=== PATIENT | female | born 1955 | race Caucasian/White ===

== ENCOUNTER 2017-08-14 08:10 | Outpatient (CLI) | payer BC ==
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
--- NOTE | 2017-08-14 13:37 | MRI ---
MRI LUMBAR SPINE WITHOUT CONTRAST: Date: 08/14/17 INDICATION: Low back pain extending down to the legs. COMPARISON: Lumbar spine radiographs dated 08/14/17. FINDINGS: There is disc degenerative disease most prominent at L4-5 and L5-S1. There is slight anterior transl ation of l4 on L5. Conus is seen to terminate at approximately L1. The visualized retroperitoneum and paravertebral soft tissues appear within normal limits. No acute fracture is evident. At L5-S1, there is a broad based bulge with facet joint degenerative change and loss of disc space h eight inducing mild bilateral neural foraminal narrowing. At L4-5, there is moderate to severe bilateral facet joint degenerative change and a broad based dis c bulge and Grade I anterolisthesis inducing mild bilateral neural foraminal narrowing, left greater than right. At L3-4, there is mild facet joint degenerative change and broad based disc bulge. There is no appre ciable central canal or neural foraminal narrowing. At L2-3, there is no appreciable central canal or neural foraminal narrowing. At L1-2, there is no appreciable central canal or neural foraminal narrowing. IMPRESSION: 1. Mild spondylosis of lumbar spine most pronounced at L4-5 where there is mild bilateral neural fo raminal narrowing. 2. Grade I anterolisthesis of L4 on L5 is related to prominent facet degenerative change at this le mayelin. POS: [facility]
== END 2017-08-14 08:11 | disposition home or self-care (01) ==
LOC: TBSIIMAG 08:10
PROVIDERS: ATTEND Surgery
DX: M47.22 Other spondylosis with radiculopathy, cervical region (principal); M47.26 Other spondylosis with radiculopathy, lumbar region; M43.12 Spondylolisthesis, cervical region; M43.16 Spondylolisthesis, lumbar region
CPT/HCPCS: 72050; 72120; 72141; 72148

== ENCOUNTER 2018-03-05 10:52 | Outpatient (CLI) | payer BC ==
[2018-03-05 11:34] LABS: Anion Gap 11 mmol/L (10-20); BUN (Urea Nitrogen) 15 mg/dL (9.8-20.1); Calc. Creatinine Clearance 0 mL/min (70-130); Calcium 9.7 mg/dL (7.8-10.44); Carbon Dioxide 26 mmol/L (23-31); Chloride 109 mmol/L (98-107); Estimated GFR-MDRD 83; Glucose 68 mg/dL (80-115); Potassium 3.8 mmol/L (3.5-5.1); Sodium 142 mmol/L (136-145)
[2018-03-05 11:45] LABS: Bilirubin Negative (Negative); Blood, Urine Negative (Negative); Clarity Cloudy (Clear); Glucose, Urine (Dipstick) Negative (Negative); Leukocyte Negative (Negative); Nitrite Positive (Negative); Protein, Urine (Dipstick) Negative (Neg-Trace); Urobilinogen 0.2 mg/dL (0.2-1.0)
[2018-03-05 11:50] LABS: Bacteria/HPF 3+ HPF (None Seen); RBC/HPF 0-3 HPF (0-3); Squamous Epithelial 0-3 HPF (0-3); WBC/HPF 0-3 HPF (0-3)
--- NOTE | 2018-03-05 12:30 | RAD ---
ABDOMEN 1 VIEW: HISTORY: Renal calculi. COMPARISON: 04/23/16. FINDINGS: Nonspecific bowel gas pattern. Surgical clips are again demonstrated. No suspicious densities proje cting over the expected region of either ureter or along the expected location of the left and right renal silhouette. Evaluation is limited by bowel gas and fecal material. IMPRESSION: Unremarkable 1 view abdomen. No radiographic evidence of nephrolithiasis. POS: [facility]
--- NOTE | 2018-03-05 12:55 | ULT ---
RENAL ULTRASOUND: Date: 03-05-18 Provided Clinical History: History of kidney stones. FINDINGS: Right kidney measures about 11.1 x 4.3 x 4.8 cm and demonstrates no evidence for hydronephrosis, sono graphically apparent calculus or mass. Left kidney measures about 11.2 x 5.5 x 4.4 cm and demonstrates no evidence for hydronephrosis, sonog raphically apparent calculus or mass. The urinary bladder appears sonographically unremarkable with bilateral ureteral jets seen. IMPRESSION: No evidence for hydronephrosis. POS: [facility]
== END 2018-03-05 10:53 | disposition home or self-care (01) ==
LOC: SCSULT 10:52
PROVIDERS: ATTEND Urology
DX: R30.0 Dysuria (principal); Z87.442 Personal history of urinary calculi
CPT/HCPCS: 36415; 74018; 76770; 80048; 81001; 87077; 87086; 87186

== ENCOUNTER 2018-04-21 15:49 | Outpatient (CLI) | payer BC | END 2018-04-21 15:50 | disposition home or self-care (01) | LOC: BICMAMMO 15:49 | PROVIDERS: ATTEND Family Medicine | DX: Z12.31 Encounter for screening mammogram for malignant neoplasm of breast (principal); Z80.3 Family history of malignant neoplasm of breast | CPT/HCPCS: 77063; 77067 ==

== ENCOUNTER 2018-05-28 14:48 | Outpatient (CLI) | payer BC ==
[2018-05-28 15:14] LABS: Hemoglobin 12.3 g/dL (12.0-16.0); Mean Corpuscular HGB CONC 34.8 g/dL (32.0-36.0); Mean Corpuscular Hemoglobin 34.9 pg (27.0-31.0); Mean Platelet Volume 6.5 fL (7.4-10.4); Platelet Count 229 thou/uL (130-400); RBC Distribution Width 13.9 % (11.5-14.5); Red Blood Cell (RBC) Count 3.54 mill/uL (4.20-5.40); White Blood Cell (WBC) Count 5.9 thou/uL (4.8-10.8)
[2018-05-28 15:25] LABS: Prothrombin Time 13.3 SEC (12.0-14.7)
[2018-05-28 15:26] LABS: PTT 28.8 SEC (22.9-36.1)
[2018-05-28 15:34] LABS: Anion Gap 13 mmol/L (10-20); BUN (Urea Nitrogen) 18 mg/dL (9.8-20.1); Calc. Creatinine Clearance 0 mL/min (70-130); Calcium 9.9 mg/dL (7.8-10.44); Carbon Dioxide 23 mmol/L (23-31); Chloride 108 mmol/L (98-107); Estimated GFR-MDRD 72; Glucose 98 mg/dL (80-115); Potassium 3.7 mmol/L (3.5-5.1); Sodium 140 mmol/L (136-145)
== END 2018-05-28 14:49 | disposition home or self-care (01) ==
LOC: LABBT 14:48
PROVIDERS: ATTEND Surgery
DX: Z01.818 Encounter for other preprocedural examination (principal); M48.02 Spinal stenosis, cervical region; M54.12 Radiculopathy, cervical region
CPT/HCPCS: 80048; 85027; 85610; 85730; 93005; 93010

== ENCOUNTER 2018-07-12 16:44 | Outpatient (CLI) | payer BC ==
[2018-07-12 17:42] LABS: #Basophils 0.1 thou/uL (0.0-0.2); #Eosinphils 0.1 thou/uL (0.0-0.7); #Lymphocytes 2.1 thou/uL (1.20-3.40); #Monocytes 0.4 thou/uL (0.11-0.59); #Neutrophils 3.1 thou/uL (1.40-6.50); %Basophils 1.5 % (0.0-1.0); %Eosinophils 1.5 % (0.0-10.0); %Lymphocytes 36.5 % (21.0-51.0); %Monocytes 7.3 % (0.0-10.0); %Neutrophils 53.2 % (42.0-75.0); Hemoglobin 12.9 g/dL (12.0-16.0); Mean Corpuscular HGB CONC 32.8 g/dL (32.0-36.0); Mean Corpuscular Hemoglobin 32.7 pg (27.0-31.0); Mean Corpuscular Volume 99.7 fL (78.0-98.0); Platelet Count 220 thou/uL (130-400); RBC Distribution Width 12.8 % (11.5-14.5); Red Blood Cell (RBC) Count 3.94 mill/uL (4.20-5.40); White Blood Cell (WBC) Count 5.8 thou/uL (4.8-10.8)
[2018-07-12 17:49] LABS: PTT 30.1 SEC (22.9-36.1); Prothrombin Time 13.4 SEC (12.0-14.7)
[2018-07-12 18:01] LABS: ALT (SGPT) 11 U/L (8-55); AST (SGOT) 14 U/L (5-34); Albumin 4.6 g/dL (3.4-4.8); Alkaline Phosphatase 83 U/L (40-150); Anion Gap 11 mmol/L (10-20); BUN (Urea Nitrogen) 16 mg/dL (9.8-20.1); Bilirubin, Total 0.4 mg/dL (0.2-1.2); Calc. Creatinine Clearance 0 mL/min (70-130); Calcium 9.6 mg/dL (7.8-10.44); Carbon Dioxide 25 mmol/L (23-31); Chloride 106 mmol/L (98-107); Estimated GFR-MDRD 74; Glucose 94 mg/dL (80-115); Potassium 4.1 mmol/L (3.5-5.1); Protein, Total 6.6 g/dL (6.0-8.3); Sodium 138 mmol/L (136-145)
== END 2018-07-12 16:45 | disposition home or self-care (01) ==
LOC: LABBT 16:44
PROVIDERS: ATTEND Internal Medicine Cardiovascular Disease
DX: Z01.818 Encounter for other preprocedural examination (principal)
CPT/HCPCS: 80053; 85025; 85610; 85730; 93005; 93010

== ENCOUNTER 2018-07-15 05:40 | Day surgery (SDC) | payer BC ==
[2018-07-12 16:53] VITALS: BMI 33.6
[2018-07-15] MEDS ORDERED: Heparin 0 ML ONE (06:32)
[2018-07-15] MEDS ORDERED: Lidocaine 1% (PF) 30 ML VIAL ONE ×2 (06:32→06:44)
--- NOTE | 2018-07-15 12:13 | DIS ---
DATE OF PROCEDURE: 07/15/2018 INDICATION FOR PROCEDURE: A 62-year-old female with palpitations who underwent stress testing and wa s found to have an abnormal stress test and was advised to undergo cardiac catheterization. Her othe r diagnoses include diabetes, history of chronic obstructive pulmonary disease in the form of asthma. DISCHARGE DIAGNOSES: Normal coronary arteries, palpitations which most likely is supraventricular ta chycardia. FOLLOW UP: Her follow up will be with me in the next month in the office. She will continue routine followups with primary care physician, Dr. Bae. PROCEDURES IN THE HOSPITAL: Cardiac catheterization, left ventriculogram, and coronary arteriography . DISCHARGE MEDICATIONS: Include potassium chloride 10 mEq daily, Trokendi XR 50 mg capsules once a da y, sertraline 50 mg daily, Myrbetriq 50 mg 1 tablet q.a.m., Flovent inhaler, Premarin vaginal cream, methotrexate, folic acid, Integra, omeprazole, Flector 1.3% transdermal patch twice a day, prednisone 20 mg a day, tramadol 50 mg as needed, tizanidine 4 mg capsules b.i.d., Amitiza 24 mcg capsules 1 b. i.d. with food and water. Also will start her on a low dose of beta elijah or either a low dose of verapamil, perhaps or diltiazem to decrease the risk of the palpitations or SVT, most likely will sta rt her on a low dose of diltiazem. If she continues to have palpitations she may need to undergo an event monitor. HOSPITAL COURSE: This is a very pleasant 62-year-old female who was seen in the office complaining o f palpitations. She has been seen many years ago for palpitations, had a cardiac catheterization and was found to have normal coronary arteries. She has a history of rheumatoid arthritis. She denied any specific chest pain, but with the palpitations and other complaints she was advised to undergo st ress testing. She was found to have abnormalities on stress test and was advised to undergo a cardia c catheterization. She was found at the cardiac catheterization to have normal coronary arteries and normal left ventricular systolic function. If she remains stable, she will be discharged home later today. Please note that if the palpitations or SVT, then they are most likely not harmful since the y only last for a few minutes. If these are PVCs or even nonsustained ventricular tachycardia if the y are short-lived, due to the fact that she has a normal left ventricular systolic function, normal c oronaries, there is a very low likelihood that she will have any acute cardiac events. Actually the risk would be less than 1% that she would have any acute cardiac events based on the PVCs or palpitat ions. At this time, she is stable. If she remains stable, there is no bleeding from the groin site then she will be discharged home and I will see her back in the office. She should continue her rout ine followups with Dr. Bae.
== END 2018-07-15 11:30 | disposition home or self-care (01) ==
LOC: CCL 05:40
PROVIDERS: ATTEND Internal Medicine Cardiovascular Disease
PROC: 4A023N7 Measurement of Cardiac Sampling and Pressure, Left Heart, Percutaneous Approach (ICD-10-PCS; principal; 2018-07-15)
PROC: B2111ZZ Fluoroscopy of Multiple Coronary Arteries using Low Osmolar Contrast (ICD-10-PCS; principal; 2018-07-15)
DX: R00.2 Palpitations (principal); R94.39 Abnormal result of other cardiovascular function study; E11.9 Type 2 diabetes mellitus without complications; J44.9 Chronic obstructive pulmonary disease, unspecified; M06.9 Rheumatoid arthritis, unspecified; Z79.899 Other long term (current) drug therapy; Z88.0 Allergy status to penicillin; Z88.2 Allergy status to sulfonamides; Z91.048 Other nonmedicinal substance allergy status
CPT/HCPCS: 93458; C1769; J1644; J2001

== ENCOUNTER 2018-07-23 06:06 | Observation (INO) | payer BC ==
[2018-07-22 12:14] VITALS: BMI 33.6
[2018-07-23] MEDS ORDERED: CEFAZOLIN/Water 2 GM/20 ML SYRINGE ONE (06:32)
[2018-07-23] MEDS ORDERED: Levofloxacin 500 mg/D5W 100 ml Premix Bag ONE (06:32)
[2018-07-23] MEDS ORDERED: Clindamycin/D5W 900 mg/50 ml Premix Bag ONE (06:33)
[2018-07-23] MEDS ORDERED: Sodium Chloride 0.9% 10 ML ONE (06:56)
[2018-07-23] MEDS ORDERED: Thrombin 5000 UNITS/5 ML VIAL ONE (06:57)
[2018-07-23] MEDS ORDERED: Fentanyl 250 MCG/5 ML VIAL ONE (07:10)
[2018-07-23] MEDS ORDERED: Fentanyl 100 MCG/2 ML VIAL ONE (10:08)
--- NOTE | 2018-07-23 11:04 | OP ---
OR: 12 WOUND TYPE: Type 1 wound. SURGEON: Raymond Khan M.D. MIXING AND DISPENSING SUPERVISOR: Danny Saldana PA-C. PREPROCEDURE DIAGNOSES: Cervical stenosis with neck pain and left C6 radiculopathy. POSTPROCEDURE DIAGNOSES: Cervical stenosis with neck pain and left C6 radiculopathy. PROCEDURES PERFORMED: 1. Anterior C5-C6 diskectomy for decompression of the spinal cord and nerve roots. 2. Preparation of endplates with placement of interbody spacer packed with graft C5-C6 for arthrodes is. 3. Use of operative microscope for micro dissection. 4. Anterior cervical plate and screw fixation, C5-C6. DESCRIPTION OF PROCEDURE: After informed consent was obtained from the patient, the patient was brou ght to OR 12. Proper patient pause and identification was carried out. We then positioned her cervi daniela spine in neutral position. I made a right anterior oblique aysha at C5-C6 to allow for approach t o C5-C6 segment. This region was sterilely cleansed, prepared, and draped. Proper patient pause and identification was carried out. The wound was then opened with a combination of sharp, monopolar an d blunt dissection. I proceeded lateral to the trachea and esophagus and medial to the right carotid sheath. I identified the prevertebral layer of deep cervical fascia and the C5-C6 segment was local ized. Distraction then occurred and the microscope was brought in for microdissection. A diskectomy was performed at C5-C6 with excellent decompression of the common dural tube and C6 nerve roots. We then turned our attention to preparation of the endplates. An interbody spacer of appropriate dimen fer packed with graft and was placed at C5-C6 for arthrodesis. Copious irrigation as did maximizing hemostasis occurred throughout. The microscope was then removed and anterior cervical plate and scr ew fixation at C5-C6 then occurred with final tightening. We again maximized hemostasis with copious irrigation as well and the wound was then closed in anatomic layers over a drain. The patient then emerged from anesthesia.
[2018-07-23] MEDS ORDERED: Milk Of Magnesia 30 ML UDCUP PO PRN (12:45)
[2018-07-23] MEDS ORDERED: Mag-Al 1200 mg/1200 mg/30 ML UDCUP PO PRN (12:45)
[2018-07-23] MEDS ORDERED: traMADol HCl 50 MG TAB PO PRN ×2 (12:45)
[2018-07-23] MEDS ORDERED: Acetaminophen 325 MG TAB PO PRN (12:45)
[2018-07-23] MEDS ORDERED: Promethazine HCl 12.5 MG SUPP PR PRN (12:45)
[2018-07-23] MEDS ORDERED: Fleet Enema 133 ML BOT PR PRN (12:45)
[2018-07-23] MEDS ORDERED: Acetaminophen 650 MG Suppository PR PRN (12:45)
[2018-07-23] MEDS ORDERED: Bisacodyl 10 MG SUPP PR PRN (12:45)
[2018-07-23] MEDS ORDERED: Promethazine HCl 25 MG/ML VIAL IM PRN (12:45)
[2018-07-23] MEDS ORDERED: Acetaminophen/Codeine 30-300mg Tablet PO PRN ×2 (12:45)
[2018-07-23] MEDS ORDERED: Promethazine 25 MG TAB PO PRN (12:45)
[2018-07-23] MEDS ORDERED: Fluticasone Propionate HFA 110 MCG AER INH PRN ×2 (13:03→16:00)
[2018-07-23] MEDS: tiZANidine HCl 4 MG TAB PO PRN ×2 (13:10→20:15)
[2018-07-23] MEDS: Sodium Chloride 0.9% 1,000 ML IV SCH (13:10)
[2018-07-23] MEDS ORDERED: Lidocaine 1% PF 5 ML VIAL ONE (13:28)
[2018-07-23] MEDS ORDERED: Dexamethasone 20 MG/5 ML VIAL ONE (13:28)
[2018-07-23] MEDS ORDERED: PROPOFOL 200 MG/20 ML VIAL ONE (13:28)
[2018-07-23] MEDS ORDERED: Ondansetron HCl/PF 4 MG/2 ML Vial ONE (13:28)
[2018-07-23] MEDS ORDERED: Glycopyrrolate 0.2 MG/ML 5 ML SYRINGE ONE (13:28)
[2018-07-23] MEDS ORDERED: Labetalol HCl 100 MG/20 ML VIAL ONE (13:28)
[2018-07-23] MEDS: HYDROcodone/Acetaminophen 7.5/325 mg Tablet PO PRN ×2 (14:18→19:57)
[2018-07-23] MEDS: Clindamycin/D5W 900 MG in Premix Bag 1 BAG IVPB SCH ×2 (14:18→21:43)
[2018-07-23] MEDS: Topiramate 25 MG TAB PO SCH (21:43)
[2018-07-24] MEDS: tiZANidine HCl 4 MG TAB PO PRN ×2 (01:16→06:34)
[2018-07-24] MEDS: HYDROcodone/Acetaminophen 7.5/325 mg Tablet PO PRN ×3 (01:16→09:25)
[2018-07-24] MEDS: Sodium Chloride 0.9% 1,000 ML IV SCH (04:50)
[2018-07-24] MEDS: Clindamycin/D5W 900 MG in Premix Bag 1 BAG IVPB SCH ×2 (05:33→14:12)
[2018-07-24] MEDS ORDERED: Potassium Chloride 10 MEQ TAB PO SCH (09:00)
[2018-07-24] MEDS ORDERED: NIACIN PO SCH (09:00)
[2018-07-24] MEDS ORDERED: IRON FUM PS CMP PO SCH (09:00)
[2018-07-24] MEDS ORDERED: VIT C PO SCH (09:00)
[2018-07-24] MEDS ORDERED: Folic Acid 1 MG TAB PO SCH (09:00)
[2018-07-24] MEDS: Topiramate 25 MG TAB PO SCH (09:25)
--- NOTE | 2018-07-24 10:28 | PRG ---
DATE OF SERVICE: 07/24/2018 SUBJECTIVE: Ms. Whelan is postoperative day #1 C5-C6 ACDF. She states she feels very well and that h er C6 radiculopathy has significantly improved. She is very pleased with how she is doing. Her drai n output has been minimal. Neurologically, she is intact and tolerating orals. We will plan for dis missal.
[2018-07-24 11:33] VITALS: BP 114/63; TEMP 97.7
[2018-07-27] MEDS ORDERED: Estrogens, Conjugated 30 GM TUBE VAG SCH (21:00)
== END 2018-07-24 14:18 | disposition home or self-care (01) ==
LOC: SDC 06:06 → SURG B 11:00
PROVIDERS: ADMIT Surgery; ATTEND Surgery
PROC: 0RG10A0 Fusion of Cervical Vertebral Joint with Interbody Fusion Device, Anterior Approach, Anterior Column, Open Approach (ICD-10-PCS; principal; 2018-07-23)
PROC: 0RT30ZZ Resection of Cervical Vertebral Disc, Open Approach (ICD-10-PCS; 2018-07-23)
DX: M54.12 Radiculopathy, cervical region (principal); M48.02 Spinal stenosis, cervical region; Z88.0 Allergy status to penicillin; Z88.2 Allergy status to sulfonamides; Z79.899 Other long term (current) drug therapy
CPT/HCPCS: 76001; 90471; 90686; 96361; 96365; 96366; 96374; 96375; C1713; C1776; G0008; G0378; J0131; J1100; J1956; J2001; J2270; J2405; J2704; J3010; J3490

== ENCOUNTER 2018-09-08 13:49 | Outpatient (CLI) | payer BC ==
--- NOTE | 2018-09-08 15:04 | RAD ---
CERVICAL SPINE SERIES THREE VIEWS: History: Neck pain. FINDINGS: Vertebral bodies are normal in height. There is anterior cervical fusion at the C5-6 levels. Markers of the disc implant are within the confines of the disc level. There are anterior osteophytic changes at C2-3 with minimal degenerative facet changes noted. IMPRESSION: Post-operative changes of the spine. POS: [facility]
== END 2018-09-08 13:50 | disposition home or self-care (01) ==
LOC: TBSIIMAG 13:49
PROVIDERS: ATTEND Surgery
DX: M54.12 Radiculopathy, cervical region (principal); M48.02 Spinal stenosis, cervical region; Z98.1 Arthrodesis status
CPT/HCPCS: 72040

== ENCOUNTER 2019-01-25 15:34 | Outpatient (CLI) | payer BC ==
--- NOTE | 2019-01-25 15:55 | RAD ---
Lumbar spine 4 views HISTORY: Sacroiliitis. Low back pain. FINDINGS: There are 5 lumbar type vertebrae. Pedicles and pars interarticularis are intact. Vertebral body heights are maintained. Disc space narrowing and minimal degenerative spondylolisthesis at the L4-5 level. Prominent osteophytosis throughout the lower facets. No acute fracture or dislocation are apparent. Osteophytosis of the sacroiliac joints without aggressive erosions. There are degenerative changes of each hip and the pubic symphysis. Phleboliths and radiopaque sutures project over the pelvis. Hemostasis clips and radiopaque suture rows over the upper to mid abdomen. IMPRESSION: Degenerative changes of the lumbar spine as detailed above. No evidence of compression fr acture.
== END 2019-01-25 15:35 | disposition home or self-care (01) ==
LOC: BICRAD 15:34
PROVIDERS: ATTEND Internal Medicine Rheumatology
DX: M46.1 Sacroiliitis, not elsewhere classified (principal); M47.816 Spondylosis without myelopathy or radiculopathy, lumbar region
CPT/HCPCS: 72110

== ENCOUNTER 2019-04-26 09:48 | Day surgery (SDC) | payer BC ==
[2019-04-25 10:37] VITALS: BMI 34.2
[2019-04-26 10:42] LABS: #Basophils 0.1 thou/uL (0.0-0.2); #Lymphocytes 1.4 thou/uL (1.20-3.40); #Monocytes 0.5 thou/uL (0.11-0.59); #Neutrophils 3.1 thou/uL (1.40-6.50); %Basophils 1.2 % (0.0-1.0); %Eosinophils 0.8 % (0.0-10.0); %Lymphocytes 27.3 % (21.0-51.0); %Monocytes 8.9 % (0.0-10.0); %Neutrophils 61.7 % (42.0-75.0); Hemoglobin 12.3 g/dL (12.0-16.0); Mean Corpuscular HGB CONC 33.7 g/dL (32.0-36.0); Mean Corpuscular Hemoglobin 34.9 pg (27.0-31.0); Mean Platelet Volume 6.8 fL (7.4-10.4); Platelet Count 181 thou/uL (130-400); RBC Distribution Width 13.5 % (11.5-14.5); Red Blood Cell (RBC) Count 3.53 mill/uL (4.20-5.40)
[2019-04-26] MEDS ORDERED: PROPOFOL 200 MG/20 ML VIAL ONE (10:47)
[2019-04-26] MEDS ORDERED: Glycopyrrolate 0.2 MG/ML 5 ML SYRINGE ONE (10:47)
[2019-04-26] MEDS ORDERED: Ondansetron PF 4 MG/2 ML Vial ONE (10:47)
[2019-04-26] MEDS ORDERED: Rocuronium Bromide 10 MG/ML (10ML VIAL) ONE (10:47)
[2019-04-26] MEDS ORDERED: Succinylcholine Chloride 20 MG/ML 10 ml SYRINGE FS ONE (10:47)
[2019-04-26] MEDS ORDERED: Lidocaine 1% PF 5 ML VIAL ONE (10:47)
[2019-04-26 11:01] LABS: Anion Gap 11 mmol/L (10-20); BUN (Urea Nitrogen) 13 mg/dL (9.8-20.1); Calc. Creatinine Clearance 106 mL/min (70-130); Calcium 9.6 mg/dL (7.8-10.44); Carbon Dioxide 28 mmol/L (23-31); Chloride 104 mmol/L (98-107); Estimated GFR-MDRD 78; Glucose 106 mg/dL (80-115); Sodium 139 mmol/L (136-145)
[2019-04-26] MEDS ORDERED: Ketorolac Tromethamine 30 MG/ML VIAL ONE (11:34)
[2019-04-26] MEDS ORDERED: Fentanyl 100 MCG/2 ML VIAL ONE ×2 (12:14→13:40)
[2019-04-26] MEDS ORDERED: Bupivacaine/Epinephrine 0.25% 30 ML VIAL ONE (12:18)
[2019-04-26] MEDS ORDERED: Bacitracin Zinc Ointment 30 gm TUBE ONE (13:06)
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
--- NOTE | 2019-04-26 17:13 | EKG ---
Test Reason : PREOP Blood Pressure : / mmHG Vent. Rate : 053 BPM Atrial Rate : 053 BPM P-R Int : 146 ms QRS Dur : 086 ms QT Int : 470 ms P-R-T Axes : 056 057 024 degrees QTc Int : 441 ms Sinus bradycardia Otherwise normal ECG When compared with ECG of 12-JUL-2018 17:21, No significant change was found Confirmed by DR. Andres CAPELLAN ([id number]) on 04/26/2019 5:12:47 PM Referred By: SUKI Confirmed By:DR. Andres CAPELLAN
== END 2019-04-26 15:30 | disposition home or self-care (01) ==
LOC: SDC 09:48
PROVIDERS: ATTEND Specialist
PROC: 0JBM0ZZ Excision of Left Upper Leg Subcutaneous Tissue and Fascia, Open Approach (ICD-10-PCS; principal; 2019-04-26)
DX: M79.89 Other specified soft tissue disorders (principal); I10 Essential (primary) hypertension; E11.9 Type 2 diabetes mellitus without complications; M06.9 Rheumatoid arthritis, unspecified; M79.7 Fibromyalgia; F32.9 Major depressive disorder, single episode, unspecified; F41.9 Anxiety disorder, unspecified; J45.909 Unspecified asthma, uncomplicated; G47.30 Sleep apnea, unspecified; G43.909 Migraine, unspecified, not intractable, without status migrainosus; E66.9 Obesity, unspecified; Z68.34 Body mass index [BMI] 34.0-34.9, adult; Z98.84 Bariatric surgery status; Z88.0 Allergy status to penicillin; Z88.2 Allergy status to sulfonamides; Z91.048 Other nonmedicinal substance allergy status; Z79.51 Long term (current) use of inhaled steroids; Z79.899 Other long term (current) drug therapy
CPT/HCPCS: 36415; 80048; 85025; 88304; 93005; 93010; J0131; J0690; J1885; J2001; J2405; J2704; J3010

== ENCOUNTER 2019-08-16 15:58 | Outpatient (CLI) | payer BC ==
--- NOTE | 2019-08-16 16:11 | RAD ---
EXAM: Chest Two Views 08/16/2019 4:08 PM HISTORY: Cough, chest tightness, cold sweats for 10 days COMPARISON: November 21, 2011 FINDINGS: Heart: Normal in size and contour. Pulmonary vessels: Normal. Costophrenic angles: Clear. Lungs: No acute airspace consolidation. Pneumothorax: None. Osseous structures:There is an ACDF involving the C6-C7 vertebral level. Additional findings: Cholecystectomy IMPRESSION: No significant acute intrathoracic disease.
== END 2019-08-16 15:59 | disposition home or self-care (01) ==
LOC: BICRAD 15:58
PROVIDERS: ATTEND Family Medicine
DX: R05 Cough (principal)
CPT/HCPCS: 71046

== ENCOUNTER 2019-10-07 19:30 | Outpatient (CLI) | payer BC | END 2019-10-07 19:31 | disposition home or self-care (01) | LOC: SLEEPLAB 19:30 | PROVIDERS: ATTEND Family Medicine | DX: G47.33 Obstructive sleep apnea (adult) (pediatric) (principal); R53.83 Other fatigue | CPT/HCPCS: 95810 ==

== ENCOUNTER 2020-03-22 14:10 | Outpatient (CLI) | payer BC ==
--- NOTE | 2020-03-23 10:16 | CT ---
CT ABDOMEN AND PELVIS PERFORMED WITHOUT CONTRAST ENHANCEMENT: HISTORY: Abdominal pain. History of kidney stone. COMPARISON: None. FINDINGS: The lung bases are clear. The liver, spleen, and pancreas regions appear unremarkable. Gallbladder has been removed. Evidence of previous gastric bypass is noted. Right and left adrenal glands and right and left kidneys are normal in size. There is no evidence of obstruction. There are no renal calculi. No masses are identified on this noncontrast exam. No ur eteral calculi. There is no significant periaortic or mesenteric adenopathy. CT OF PELVIS PERFORMED WITHOUT CONTRAST ENHANCEMENT: Some mild sigmoid diverticulosis noted. No adenopathy, mass, or free fluid. The appendix is normal. IMPRESSION: 1. No evidence of renal calculi. 2. Postop gastric bypass. 3. Post cholecystectomy change. 4. Sigmoid diverticulosis. POS: [facility]
== END 2020-03-22 14:11 | disposition home or self-care (01) ==
LOC: SCSCT 14:10
PROVIDERS: ATTEND Urology
DX: N39.46 Mixed incontinence (principal); R35.0 Frequency of micturition; N20.0 Calculus of kidney; Z90.49 Acquired absence of other specified parts of digestive tract; K57.30 Diverticulosis of large intestine without perforation or abscess without bleeding
CPT/HCPCS: 74176

== ENCOUNTER 2020-03-27 07:54 | Outpatient (CLI) | payer BC ==
--- NOTE | 2020-03-27 09:35 | MRI ---
EXAM: MRI right knee PROVIDED CLINICAL HISTORY: Pain COMPARISON: None FINDINGS: The anterior cruciate ligament, posterior cruciate ligament, medial collateral ligament and lateral c ollateral ligamentous complex demonstrate an intact MR appearance, as does the extensor mechanism. There is a full-thickness radial tear involving the posterior horn of the medial meniscus. Probable c omplex nondisplaced tear involving the medial meniscal body. The lateral meniscus demonstrates no evidence for tear. There is articular cartilage irregularity involving the patella with foci of full-thickness articular cartilage fissuring seen involving the medial facet. There is diffuse articular cartilage thinning with foci of apparent full-thickness articular cartilage loss involving the central weightbearing por tions of both medial and lateral femoral condyles. There is a mild knee joint effusion with conspicuous Elmore's cyst. Osteophytes are seen about the kne e. No focal concerning regional marrow or muscular signal abnormality apparent. IMPRESSION: 1. Medial meniscal tears as described. 2. Tricompartmental articular chondrosis. 3. Mild knee joint effusion with conspicuous Elmore's cyst.
== END 2020-03-27 07:55 | disposition home or self-care (01) ==
LOC: SCSMRI 07:54
PROVIDERS: ATTEND Orthopaedic Surgery
DX: M25.561 Pain in right knee (principal); S83.241A Other tear of medial meniscus, current injury, right knee, initial encounter; M25.861 Other specified joint disorders, right knee; M25.461 Effusion, right knee; M71.21 Synovial cyst of popliteal space [Baker], right knee

== ENCOUNTER 2020-04-05 06:57 | Outpatient (CLI) | payer BC, OTHER ==
[2020-04-05 14:50] LABS: Anion Gap 12 mmol/L (10-20); BUN (Urea Nitrogen) 16 mg/dL (9.8-20.1); Calc. Creatinine Clearance 0 mL/min (70-130); Calcium 9.6 mg/dL (7.8-10.44); Carbon Dioxide 28 mmol/L (23-31); Chloride 105 mmol/L (98-107); Estimated GFR-MDRD 65; Glucose 155 mg/dL (80-115); Potassium 4.3 mmol/L (3.5-5.1); Sodium 141 mmol/L (136-145)
[2020-04-06 12:06] LABS: SARS-CoV-2 MS2 Positive; SARS-CoV-2 N Gene Negative; SARS-CoV-2 S Gene Negative; SARS-CoV-2 orf1ab Negative
== END 2020-04-05 06:58 | disposition home or self-care (01) ==
LOC: LABBT 06:57
PROVIDERS: ATTEND Orthopaedic Surgery
DX: Z01.818 Encounter for other preprocedural examination (principal); Z11.59 Encounter for screening for other viral diseases; S83.241A Other tear of medial meniscus, current injury, right knee, initial encounter
CPT/HCPCS: 80048; 87635; 93005; 93010; U0003

== ENCOUNTER 2020-04-10 08:40 | Day surgery (SDC) | payer BC ==
[2020-04-04 10:19] VITALS: BMI 40.7
[2020-04-10] MEDS ORDERED: Clindamycin/D5W 600 mg/50 ml Premix Bag ONE (09:17)
[2020-04-10] MEDS ORDERED: PROPOFOL 20 ML ONE (10:36)
[2020-04-10] MEDS ORDERED: Fentanyl 100 MCG/2 ML VIAL ONE (11:37)
[2020-04-10] MEDS ORDERED: Bupivacaine PF 0.5% 30 ML VIAL ONE (15:09)
[2020-04-10] MEDS ORDERED: Lidocaine 2% w/Epinephrine 1:200K 20 ML VIAL ONE (15:09)
[2020-04-10] MEDS ORDERED: Lidocaine 1% PF 5 ML VIAL ONE (15:09)
[2020-04-10] MEDS ORDERED: Dexamethasone 20 MG/5 ML VIAL ONE (15:09)
[2020-04-10] MEDS ORDERED: Ondansetron PF 4 MG/2 ML Vial ONE (15:09)
--- NOTE | 2020-04-10 22:50 | OP ---
DATE OF PROCEDURE: 04/10/2020 PREOPERATIVE DIAGNOSIS: Medial meniscus tear of the right knee. POSTOPERATIVE DIAGNOSES: 1. Medial meniscus tear and lateral meniscus tear of the right knee. 2. 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 3. Grade 3 chondromalacia of the right medial femoral condyle. 4. Grade 3 chondromalacia of the trochlea. ANESTHESIA: General. BLOOD LOSS: Minimal. SPECIMENS: None. DRAINS: None. COMPLICATIONS: None. DESCRIPTION OF PROCEDURE: The patient was taken to the operating room where general anesthesia was induced. Right leg was prepped and draped in the usual sterile fashion. No tourniquet was used. Scope was placed in the lateral portal. Probe was placed in the medial portal. Findings were as above. I performed a partial medial meniscectomy using basket forceps and smoothed this using a 4.0 full-radius resector and then probing, confirmed the meniscus stable. Laterally, there was complex tearing of the central edge of the lateral meniscus. This was debrided using a 4.0 full-radius resector and then probed and found to be stable. The knee was then irrigated and drained. Sterile dressing was applied. Job ID: [id number]
== END 2020-04-10 14:15 | disposition home or self-care (01) ==
LOC: SDC 08:40
PROVIDERS: ATTEND Orthopaedic Surgery
PROC: 0SBC4ZZ Excision of Right Knee Joint, Percutaneous Endoscopic Approach (ICD-10-PCS; principal; 2020-04-10)
DX: S83.241A Other tear of medial meniscus, current injury, right knee, initial encounter (principal); M94.261 Chondromalacia, right knee; I10 Essential (primary) hypertension; E11.9 Type 2 diabetes mellitus without complications; F41.9 Anxiety disorder, unspecified; F32.9 Major depressive disorder, single episode, unspecified; G47.30 Sleep apnea, unspecified; K59.09 Other constipation; M06.9 Rheumatoid arthritis, unspecified; Z79.899 Other long term (current) drug therapy; Z88.0 Allergy status to penicillin; Z88.2 Allergy status to sulfonamides; Z91.048 Other nonmedicinal substance allergy status
CPT/HCPCS: J1100; J2001; J2405; J2704; J3010; J3490; S0020